=== PATIENT | female | born 1980 | race Two or more races ===

== ENCOUNTER 2022-03-10 10:12 | Emergency (ER) | payer MEDICAID ==
[~2022-03-10] VITALS: Ht 152.4 cm; Wt 68.0 kg
[2022-03-10 11:08] LABS: Urine Bacteria NONE SEEN /hpf (None Seen); Urine Blood Negative /uL (Negative); Urine Specific Gravity 1.011 (1.001-1.035); Urine WBC 5 /hpf (0 - 5)
[2022-03-10] MEDS ORDERED: cefTRIAXone SOD 1,000 MG VL IM ONE (11:30)
[2022-03-10] MEDS ORDERED: KETOROLAC TROMETH 60MG/2ML VIAL IM ONE (11:30)
[2022-03-10 11:37] VITALS: BP 131/81
[2022-03-10] MEDS ORDERED: IBUP800T27 PO (12:39)
== END 2022-03-10 12:49 | disposition home or self-care (01) ==
LOC: ER 10:12
DX: R10.9 Unspecified abdominal pain (principal); R30.0 Dysuria; Z98.51 Tubal ligation status; Z90.710 Acquired absence of both cervix and uterus
CPT/HCPCS: 74176; 81001; 96372; 99284; J1885